=== PATIENT | female | born 1975 | race Caucasian/White ===

== ENCOUNTER 2017-08-26 14:04 | Inpatient (IN) | payer SELFPAY ==
[~2017-08-26] VITALS: Ht 162.6 cm; Wt 52.8 kg
[2017-08-26 14:04] VITALS: BP 119/78
[~2017-08-26 14:04] MED LIST: ALBUTEROL-200 PUFFS/ IH; ALEVE220 MG PO; APAP/BUTALBITAL1 TA1 PO; BENZONATATE100 MG PO; BREO ELLIPTA1 POW IH; BUPRENORPHINE H1 TA2 SL; CIPRO 500MG TA500 MG PO; CIPROFLOXACIN500 MG PO; DOXYCYCLINE HY100 M1 PO; DULERA1 AR1 IH; FLAGYL500 M1 PO; FLEXERIL10 MG PO; FLUOXETINE HYDR40 MG PO; IBU-8800 MG PO; LEVAQUIN500 MG PO; LORTAB 5/500 501 TAB PO; MEDROL 4MG. DOSE4 MG PO; MOBIC7.5 MG PO; MOTRIN600 M1 PO; NAPROSYN500 M1 PO; NICOTINE PATCH;21 MG TD; NOMEDS *; NORCO 325 MG-51 TAB PO; PERCOCET 10 MG1 EACH PO; PHENERGAN 25MG.25 M1 PO; PREDNISONE 20MG20 MG PO; PRILOSEC20 MG PO; ROBAXIN-750750 MG PO; SPIRIVA HA1 PUFF/INH IH; TESSALON PERLE100 M1 PO; TYLENOL 8 HOUR650 MG PO; TYLENOL ES500 M1 PO; VALIUM 10MG TAB10 MG PO; VICODIN 5/500 T1 TAB PO; VISTARIL25 M1 PO; XANAX 1MG TABLET1 MG PO
--- NOTE | 2017-08-26 14:44 | Emergency Room Report ---
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 Y Clinical Suspician of Infection? Y Mental Status: 1 - Regular (Normal Baseline) Sepsis Risk:Low Sepsis Risk Have you (or family members/close friends) recently traveled outside the [place]? N If Yes, where/when: Have you had exposure to infectious disease within the past month? N TB? Other? Specify: Comment The patient is brought in by ambulance with complaints of sore throat and fever. She has been sick since Friday 2 days ago. Bad sore throat yesterday, not as bad today. She has very slight cough. She has rhinorrhea. Nausea, but no vomiting or diarrhea. Generalized malaise and body aches. She does not think she has had a flu shot this year. Not eating or drinking much. States she feels dehydrated. ALLERGIES Coded Allergies: Penicillins (05/22/16) codeine (05/22/16) Home Medications Reported Medications Fluoxetine Hcl (Fluoxetine Hydrochloride) 40 MG PO DAILY Hydroxyzine Pamoate (Vistaril 25MG CAP) 25 MG PO QHSP PRN SLEEP BENZONATATE (Benzonatate) 100 MG PO TID PRN COUGH Tiotropium [place] (Spiriva) 2 PUFFS IH DAILY FLUTICASONE/VILANTEROL (Breo Ellipta 100-25 Mcg INH) 1 POW IH DAILY History Medical History General CAD? No Angina: No NM: No Hypertension? No Hyperlipidemia? No CHF? Yes DVT? No PE? No COPD? Yes Asthma? No Anemia? No GERD? No Gastric ulcers? No GI Bleed? No Hernia? No Thyroid Problems? No Hypothyroidism? No CVA? No Seizures? No Diabetes? No Insulin Dependent: No Insulin Pump: No Home FSBS? No Renal Insuffiency? No End Stage Renal Disease? No UTI? No Stones? No BPH? No GB Disease: Yes Nephritic Syndrome? No Asplenia? No Hepatitis? No Sickle Cell Disease? No Arthritis? No Migraines? No Cataracts? No Glaucoma? No MRSA? No HIV? No TB? No Anxiety? No Depression? No Cancer? No More? 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 Respiratory cough Cardiovascular denies chest pain Gastrointestinal denies diarrhea, nausea, denies vomiting Musculoskeletal muscle pain Physical Exam Vital Signs Vital Signs Date Time Temp Pulse Resp B/P Pulse O2 O2 Flow FiO2 Ox Delivery Rate 08/26 1949 16 08/26 193 100.9 100 18 103/63 97 08/26 1802 101.0 98 18 109/81 97 2 08/26 1657 102.5 101 18 107/64 97 2 08/26 1404 100.2 112 18 119/78 94 2 General Appearance normal appearance, WD/WN Eye Exam - bilateral eye normal exam, bilateral eye PERRL, bilateral eye EOMI Ear, Nose, Throat hearing grossly normal, erythema of pharynx without exudate or tonsillar hypertrophy, uvula midline. No signs of peritonsillar abscess. Neck normal inspection, non-tender, supple, full range of motion Respiratory Status Yes: trachea midline, chest symmetrical, non tender chest. No: respiratory distress. Lung Sounds bilateral: normal breath sounds, lungs clear. Cardiovascular normal exam, regular rate/rhythm, no peripheral edema, no gallop, no JVD, no murmur, no rub, normal peripheral pulses Peripheral Pulses Pulses normal Yes Gastrointestinal normal bowel sounds, normal exam, non tender, soft, no organomegaly Extremities normal inspection Neurologic alert, normal exam, oriented x 3 Mental status normal mood/affect Skin intact, normal color, warm/dry Lymphatic no adenopathy Medical Decision Making LABS/Meds/Orders Pt receiving controlled substance in ED? No Results/Orders Laboratory Tests 08/26/17 1900: Urine Color YELLOW, Urine Appearance CLEAR, Urine pH 6.0, Ur Specific [place] <= 1.005, Urine Protein NEGATIVE, Urine Ketones NEGATIVE, Urine Blood TRACE-LYSED, Urine Nitrate NEGATIVE, Urine Bilirubin NEGATIVE, Urine Urobilinogen 0.2, Ur Leukocyte Esterase NEGATIVE, Urine RBC NONE, Urine WBC 20-50, Ur Squamous Epith Cells 20-50, Urine Bacteria 3+, Urine Glucose NEGATIVE 08/26/17 1605: Influenza Type A Ag NOT DETECTED, Influenza Type B Ag NOT DETECTED 08/26/17 1439: Lactic Acid 0.9 08/26/17 1439: Sodium 135 L, Potassium 3.2 L, Chloride 98, Carbon Dioxide 31, BUN 7, Creatinine 0.8, Estimated Creat Clear 79, Estimated GFR (MDRD) 79, Glucose 96, Calcium 9.0, Total Bilirubin 0.5, AST 21, ALT 16, Alkaline Phosphatase 52, Total Protein 7.9, Albumin 3.8, Globulin 4.1 H, Albumin/Globulin Ratio 0.9 L, WBC 18.5 H, RBC 4.33, Hgb 13.8, Hct 41.5, MCV 95.9, RDW 12.7, Plt Count 288, MPV 8.5, Gran % 80.0, Gran # 14.8 H, Total Counted 100, Lymphocytes % 13.2, Monocytes % 4.3, Eosinophils % 1.7, Basophils % 0.8, Neutrophils 83 H, Band Neutrophils 2, Lymphocytes (Manual) 10, Lymphocytes # 2.5, Monocytes (Manual) 4, Monocytes # 0.8, Eosinophils # 0.3, Basophils # 0.2, Atypical Lymphocytes 1, Platelet Estimate NORMAL, Target Cells 1+, Stomatocytes 1+, PUBS MCHC 33.1, MCH 31.8 H Current Medication Orders Sig/Camille Start time Last Medication Dose Route Stop Time Status Admin Ceftriaxone Sodium 1 GM ONCE ONE 08/26 1945 r 08/26 Sodium Chloride 50 ML IV 08/26 Ketorolac 30 MG ONCE ONE 08/26 1945 DC 08/26 Tromethamine IV 08/26 Ceftriaxone Sodium 0 .STK-MED ONE 08/26 1939 DCr .ROUTE Sodium Chloride 100 ML .STK-MED ONE 08/26 1939 DC IV Ketorolac 0 .STK-MED ONE 08/26 1938 DC Tromethamine .ROUTE Acetaminophen 0 .STK-MED ONE 08/26 1653 DC PO Ondansetron HCl 0 .STK-MED ONE 10/31 1652 DC .ROUTE Sodium Chloride 1,000 ML .STK-MED ONE 08/26 1652 DC IV Acetaminophen 650 MG ONCE ONE 08/26 1500 DC 08/26 PO 08/26 1501 1656 Ondansetron HCl 4 MG ONCE ONE 08/26 1500 DC 08/26 IV 08/26 1501 1656 Sodium Chloride 1,000 ML .Q1H1M 08/26 1500 DC 08/26 IV 08/26 1600 1656 Sodium Chloride 10 ML PRN PRN 08/26 1430 AC IV 08/27 1420 Orders Procedure Date/time Status CULTURE, URINE 08/26 1900 Active URINALYSIS/COMPLETE 08/26 1711 Complete CULTURE, THROAT 08/26 1605 Active INFLUENZA A&B ANTIGENS 08/26 1444 Complete DIFFERENTIAL-WBC 08/26 1439 Complete IV SALINE LOCK 08/26 1421 Active CULTURE, BLOOD 08/26 1421 Active STREP SCREEN THROAT 08/26 1421 Complete LACTIC ACID 08/26 1421 Complete CBC WITH AUTO DIFF 08/26 1421 Complete CHEM 12 PROFILE 08/26 1421 Complete XRAY/CT/US XRAY/CT/US XRAY chest Comment X-ray interpreted by Fawad Yoon M.D.: Pleural scarring LEFT base, no acute change Progress - 7:00 PM: The patient states she feels slightly improved. We discussed her disposition. The patient still looks ill and has extreme malaise. Urine has 20- 50 white blood cells, but also a large number of epithelial cells. I will treat her for possible pyelonephritis. Discussed with Dr. Henriquez. The patient will be admitted. Departure Departure Disposition Still a Patient Clinical Impression Primary Impression: Febrile illness Condition STABLE Referrals Yuri Henriquez MD (Family) ED Critical Care Critical Care No at 2009
--- OUTSIDE RECORDS SUMMARY | 2017-08-26 14:47 | External Medical Summary Rpt | CCD ---
Demographics Preferred Language Divehi Marital Status Unknown Nondenominational Affiliation Unknown Race Unknown Ethnic Group Unknown Author Author , LENORE GROVER Address Unknown Phone Immunization No patient found.
--- OUTSIDE RECORDS SUMMARY | 2017-08-26 14:47 | External Medical Summary Rpt | CCD ---
Demographics Preferred Language Hebrew Marital Status Unknown Baptist Affiliation Unknown Race Unknown Ethnic Group Unknown Author Author , LENORE GROVER Address Unknown Phone Immunization No patient found.
--- OUTSIDE RECORDS SUMMARY | 2017-08-26 14:47 | External Medical Summary Rpt | CCD ---
Author Author , LENORE Organization LENORE Address Unknown Phone [email or web address] Care Team Providers Care Radio Recorder Name Role Phone Mechelle Varela MD, Unavailable Unavailable Mechelle Henriquez MD, Unavailable Unavailable Puneet Henriquez MD Purpose Continuity of Care Document - 01-31-2013 through 2016 Problems Code Diagnosis DOS Provider Status 465.9 465.9 ACUTE 09-23-2013 [place] URI NOS [facility] 491.21 491.21 09-23-2013 [facility] CHRONIC [facility] BRONCHITIS, W (ACUTE) EXACERBATIO N 305.1 305.1 06-28-2013 [place] TOBACCO USE [facility] DISORDER Hospital 486 486 06-28-2013 [place] PNEUMONIA, [facility] ORGANISM Hospital NOS V14.0 V14.0 06-28-2013 [place] HX-PENICILL [facility] IN ALLERGY Hospital 784.0 784.0 01-31-2013 [place] HEADACHE [facility] J44.9 CHRONIC OBSTRUCTIVE PULMONARY DISEASE, UNSPECIFIED N12 TUBULO-INTE RSTITIAL NEPHRITIS, 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 CHRONIC N39.0 URINARY TRACT INFECTION, SITE NOT SPECIFIED R10.9 UNSPECIFIED ABDOMINAL PAIN S60.00XA CONTUSION OF UNSP FINGER WITHOUT DAMAGE TO NAIL, INIT ENCNTR Allergies, Adverse Reactions, Alerts Type Drug Allergy Adverse Reaction to Substance Substance Reaction Severity No Known Allergies - Unknown Mild Nka NO KNOWN DRUG Unknown Unknown ALLERGIES PCN (penicillin) ITCHING, RASH Intermediate Codeine CLOSES THROAT, SOA Severe Medications Na ND Rx Da Fi Fi Am Da Di Ph RX Ph St me C No te ll ll ou ys ag ar # ys at rm s nt no ma ic us Or Da si cy ia de te s n re d IP 00 11 0 No RA 48 -2 T- 70 8- Lo AL 20 20 ng BU 10 13 er T 1 0. Ac 5- ti 3( ve 2. 5) MG /3 ML LA 00 11 0 No ED 05 -2 NI 40 8- Lo SO 01 20 ng NE 82 13 er 0 20 Ac ti MG ve TA BL ET AL 00 11 0 No BU 48 -2 TE 79 8- Lo RO 50 20 ng L 10 13 er DUGAN 1 L Ac 2. ti 5 ve MG /[address] AP 00 11 0 No AP 40 -2 /H 60 8- Lo YD 36 20 ng RO 56 13 er CO 2 DO Ac NE ti ve 32 5 MG -5 MG KE 00 11 0 No TO 40 -2 RO 93 8- Lo LA 79 20 ng C 50 13 er 30 1 Ac MG ti /M ve L AL VE 00 09 0 No NT 17 -0 OL 30 1- Lo IN 68 20 ng 22 13 er HF 4 A Ac 90 ti ve MC G IN AMES LE R Ae 08 09 0 No ro 37 -0 ch 30 1- Lo am 76 20 ng be 50 13 er r/ 0 Op Ac ti ti ames ve le r Ae 08 09 0 No ro 37 -0 ch 30 1- Lo am 76 20 ng be 50 13 er r/ 0 Op Ac ti ti ames ve le r Le 51 09 0 No vo 07 -0 fl 90 1- Lo ox 03 20 ng ac 52 13 er in 0 Ac 50 ti 0M ve G Ta bl et BE 57 09 0 No NZ 66 -0 ON 40 1- Lo AT 13 20 ng AT 38 13 er E 8 10 Ac 0 ti MG ve CA PS UL E KE 00 04 0 No TO 40 -0 RO 93 7- Lo LA 79 20 ng C 60 13 er 60 1 Ac MG ti /2 ve ML AL HY [address] 51 -0 OX 75 7- Lo YZ 60 20 ng IN 12 13 er E 5 50 Ac ti MG ve /M L AL Vital Signs 09-23-2013 17:31 Name Value Interpretat Reference Comment ion Range BP 76 mm[Hg] Diastolic BP Systolic 110 mm[Hg] Heart 129 /min Rate/Pulse O2% 92 % Respiratory 20 /min Rate 09-23-2013 17:22 Name Value Interpretat Reference Comment ion Range Body 100.6 Temperature [degF] 09-23-2013 15:56 Name Value Interpretat Reference Comment ion Range BP 85 mm[Hg] Diastolic BP Systolic 125 mm[Hg] Heart 121 /min Rate/Pulse O2% 86 % Respiratory 20 /min Rate 06-28-2013 00:09 Name Value Interpretat Reference Comment ion Range O2% 98 % 06-28-2013 00:05 Name Value Interpretat Reference Comment ion Range BP 85 mm[Hg] Diastolic BP Systolic 105 mm[Hg] Heart 100 /min Rate/Pulse Respiratory 16 /min Rate 06-27-2013 23:46 Name Value Interpretat Reference Comment ion Range BP 85 mm[Hg] Diastolic BP Systolic 105 mm[Hg] Heart 80 /min Rate/Pulse O2% 95 % Respiratory 20 /min Rate 01-31-2013 07:17 Name Value Interpretat Reference Comment ion Range BP 74 mm[Hg] Diastolic BP Systolic 112 mm[Hg] Heart 83 /min Rate/Pulse O2% 98 % Respiratory 20 /min Rate 01-31-2013 06:41 Name Value Interpretat Reference Comment ion Range BP 66 mm[Hg] Diastolic BP Systolic 117 mm[Hg] Heart 90 /min Rate/Pulse O2% 94 % Respiratory 12 /min Rate Encounters Encounter Start End Date Code Location Performer Type Date Emergency KUSH Varela MD (ER) 3 15:44 3 17:40 [facility] Emergency KUSH Henriquez MD (ER) 3 23:05 3 00:09 [facility] Emergency KUSH Henriquez MD (ER) 3 05:45 3 07:18 [facility]
--- OUTSIDE RECORDS SUMMARY | 2017-08-26 14:47 | External Medical Summary Rpt ---
Author Author LENORE Espino, [employer] Address Unknown Phone Unavailable
--- OUTSIDE RECORDS SUMMARY | 2017-08-26 14:47 | External Medical Summary Rpt | CCD ---
Author Author , LENORE Organization LENORE Address Unknown Phone [email or web address] Care Team Providers Care Professor Of Geology Name Role Phone Mechelle Varela MD, Unavailable Unavailable Mechelle Henriquez MD, Unavailable Unavailable Puneet Henriquez MD Purpose Continuity of Care Document - 01-31-2013 through 2016 Problems Code Diagnosis DOS Provider Status 465.9 465.9 ACUTE 09-23-2013 [place] URI NOS [facility] 491.21 491.21 09-23-2013 [facility]RON[facility] BRONCHITIS, W (ACUTE) EXACERBATIO N 305.1 305.1 06-28-2013 [place] TOBACCO USE [facility] DISORDER Hospital 486 486 06-28-2013 [place] PNEUMONIA, [facility] ORGANISM Hospital NOS V14.0 V14.0 06-28-2013 [place] HX-PENICILL [facility] IN ALLERGY Hospital 784.0 784.0 01-31-2013 [place] HEADACHE [facility] J44.9 CHRONIC OBSTRUCTIVE PULMONARY DISEASE, UNSPECIFIED N12 [...] 3( ve 2. 5) MG /3 ML NE 00 11 0 No ED 05 -2 [...] Varela MD (ER) 3 15:44 3 17:40 [facility] Emergency KUSH Henriquez MD (ER) 3 23:05 3 00:09 [facility] Emergency KUSH Henriquez MD (ER) 3 05:45 3 07:18 [facility]
[2017-08-26 14:50] LABS: HEMOGLOBIN 13.8 g/dL (12.2-16.2); LYMPH # 2.5 K/mm3 (0.7-4.5); LYMPH % 13.2 % (10-50.0)
[2017-08-26 15:19] LABS: NEUTROPHILS 83 % (42-76)
[2017-08-26 15:23] LABS: STOMATOCYTE 1+
--- NOTE | 2017-08-26 15:31 | RADIOLOGY REPORT PS360 ---
CHEST(2 VIEWS-NOT PORTABLE) HISTORY: Fever, smoker FEVER ORDERING PHYSICIAN: Fawad Yoon MD PATIENT AGE: 42 years COMPARISON: 03/04/2017 FINDINGS: Normal heart size. No evidence of CHF. COPD with scarring in the left lung base and chronic blunting of the left CP angle. Breast attenuation artifact present over both lower lobes right more so than left. No definite lobar consolidation or collapse. There is evidence of old granulomatous disease. No acute bony anomalies. IMPRESSION: COPD, no acute finding..
[2017-08-26 19:08] LABS: URINE BILIRUBIN - DIPSTICK NEGATIVE (NEG); URINE BLOOD TRACE-LYSED (NEG)
[2017-08-26 19:28] LABS: URINE SQUAMOUS CELLS 20-50 #/hpf (0-5)
--- OUTSIDE RECORDS SUMMARY | 2017-08-26 20:17 | External Medical Summary Rpt | CCD ---
Author Author , LENORE Organization LENORE Address Unknown Phone [email or web address] Care Team Providers Care Booking Officer Name Role Phone Mechelle Varela MD, Unavailable Unavailable Mechelle Henriquez MD, Unavailable Unavailable Puneet Henriquez MD Purpose Continuity of Care Document - 01-31-2013 through 2016 Problems Code Diagnosis DOS Provider Status 465.9 465.9 ACUTE 09-23-2013 [place] URI NOS [facility] 491.21 491.21 09-23-2013 [facility] CHRONIC [facility] BRONCHITIS, W (ACUTE) EXACERBATIO N 305.1 305.1 06-28-2013 [place] TOBACCO USE [facility] DISORDER Hospital 486 486 06-28-2013 [place] PNEUMONIA, [facility] ORGANISM Hospital NOS V14.0 V14.0 06-28-2013 [place] HX-PENICILL [facility] IN ALLERGY Hospital 784.0 784.0 01-31-2013 [place] HEADACHE [facility] J44.9 CHRONIC OBSTRUCTIVE PULMONARY DISEASE, UNSPECIFIED [...] 3( ve 2. 5) MG /3 ML [place] 00 11 0 No ED 05 -2 [...] O2% 94 % Respiratory 12 /min Rate Results Labs Lab Lab Date Result Refere Interp Status Commen Order Detail nces retati t Range on Urinalysis with microscopy (08-26-2017 19:00) Urine 20 - 50 O complet leukocy 017 ed festus 19:00 wbc/hpf count (number /volume ) Urine 0.2 0.2 NEG complet urobili 017 L ed nogen 19:00 E.U./dL detecti on by test str [place]ou 20-50 0-5 complet s 017 20-50 L ed epithel 19:00 #/hpf ial cells detecti on in u Urine < = 1.005-1 complet specifi 017 1.005 .030 ed c 19:00 gravity measure ment Erythro NONE 0 complet cytes 017 NONE L ed detecti 19:00 rbc/hpf on in urine sedimen t Urine = NEG complet protein 017 NEGATIV ed 19:00 E mg/dL measure ment by automat ed t Urine = 6.0 5.0-8.5 complet pH 017 ed 19:00 Urine NEGATIV NEG complet nitrite 017 E ed 19:00 NEGATIV detecti E L on by test strip Mucus NEGATIV NEG complet detecti 017 E ed on in 19:00 NEGATIV urine E L sedimen t by lig Urine NEGATIV NEG complet ketones 017 E ed 19:00 NEGATIV detecti E L on by mg/dL automat ed festus Glucose = NEG complet ur 017 NEGATIV ed test 19:00 E strip Urine YELLOW YELLOW complet color 017 YELLOW ed 19:00 L Urine TRACE-L NEG complet blood 017 YSED ed detecti 19:00 TRACE-L on YSED L Urine NEGATIV NEG complet total 017 E ed bilirub 19:00 NEGATIV in E L detecti on by test Bacteri 3+ 3+ L O complet a 017 ed detecti 19:00 on in urine sedimen t by Urine CLEAR CLEAR complet appeara 017 CLEAR L ed nce 19:00 determi nation Influenza A and B virus antigen assay (08-26-2017 16:05) Influen NOT NOT complet za 017 DETECTE DETECTD ed virus B 16:05 D NOT DETECTE antigen D L detecti on Comment: Nakia Rosas Influen NOT NOT complet za A ag 017 DETECTE DETECTD ed QL 16:05 D NOT DETECTE D L Comment: Nakia Rosas Screening group A Streptococcus antigen (08-26-2017 16:05) Screeni NEGATIV complet ng 017 E ed group A 16:05 NEGATIV E L Strepto coccus antigen Influenza virus A+B Ag [Presence] in Unspecified specimen (08-26-2017 16:05) Influen NOT NOT complet za 017 DETECTE DETECTD ed virus A 16:05 D Ag [Presen ce] in Unspeci fied specime n Influen NOT NOT complet za 017 DETECTE DETECTD ed virus B 16:05 D Ag [Presen ce] in Unspeci fied specime n Streptococcus pyogenes Ag [Presence] in Unspecified specimen (08-26-2017 16:05) Strepto NEGATIV complet coccus 017 E ed pyogene 16:05 s Ag [Presen ce] in Unspeci fied specime n Comprehensive metabolic panel (08-26-2017 14:39) Serum 2 = 3.8 3.4-5.0 complet or 017 gm/dL ed plasma 14:39 albumin measure ment (mas Protein = 7.9 6.4-8.2 complet total 017 gm/dL ed ser/marcin 14:39 s ALT = 16 12-78 complet (SGPT) 017 U/L ed ser/marcin 14:39 s Serum 2 = 21 15-37 complet or 017 U/L ed plasma 14:39 asparta te aminotr ansfera Serum = 135 136-145 complet sodium 017 mmoL/L ed measure 14:39 ment Serum = 3.2 3.5-5.1 complet potassi 017 mmoL/L ed um 14:39 measure ment Serum = 96 74-106 complet or 017 mg/dL ed plasma 14:39 glucose measure ment (mas Serum = 4.1 1.3-3.2 complet globuli 017 gm/dL ed n 14:39 measure ment (mass/v olume) Estimat = 79 59- complet ed 017 ML/MIN ed glomeru 14:39 lar filtrat ion rate (GF Comment: REFERENCE RANGE: >60 ML/MIN/1.73 SQUARE METERS Comment: If this patient is -Tajik, then multiply the Comment: result by 1.210. Estimat = 79 50-200 complet ion of 017 ML/MIN ed creatin 14:39 ine renal clearan ce Serum = 0.8 0.55-1. complet or 017 mg/dL 02 ed plasma 14:39 creatin ine measure ment ( Carbon = 31 21.0-32 complet dioxide 017 mmoL/L .0 ed 14:39 measure ment Serum = 98 98-107 complet or 017 mmoL/L ed plasma 14:39 chlorid e measure ment (mo Serum 2 = 9.0 8.5-10. complet or 017 mg/dL 1 ed plasma 14:39 calcium measure ment (mas Serum 2 = 7 7-18 complet or 017 mg/dL ed plasma 14:39 urea nitroge n measure men Serum = 0.5 0.2-1.0 complet or 017 mg/dL ed plasma 14:39 total bilirub in measure m Serum = 52 46-116 complet or 017 U/L ed plasma 14:39 alkalin e phospha tase lowell Serum = 0.9 1.1-1.8 complet or 017 ed plasma 14:39 albumin /globul in mass ra CBC w auto diff (08-26-2017 14:39) Blood = 18.5 4.8-10. complet leukocy 017 K/MM3 8 ed festus 14:39 count (number /volume ) Automat = 12.7 11.5-17 complet ed 017 % .5 ed erythro 14:39 cyte distrib ution width Red = 4.33 4.2-5.4 complet blood 017 M/mm3 ed cell 14:39 count Blood = 288 142-424 complet platele 017 K/mm3 ed t count 14:39 Automat = 8.5 7.4-10. complet ed 017 fl 4 ed blood 14:39 platele t mean volume lowell Morehouse % = 4.3 % 1.7-9.3 complet 017 ed 14:39 Absolut = 0.8 0.1-1.0 complet e 017 K/mm3 ed monocyt 14:39 e count Automat = 95.9 82.2-97 complet ed 017 fl .8 ed erythro 14:39 cyte mean corpusc ular v Automat = 33.1 31.8-35 complet ed 017 g/dl .4 ed erythro 14:39 cyte mean corpusc ular h Mean = 31.8 27-31.2 complet corpusc 017 pg ed ular 14:39 hemoglo bin (MCH) determ Lymphoc = 13.2 10-50.0 complet yte 017 % ed count, 14:39 blood, automat ed Absolut = 2.5 0.7-4.5 complet e 017 K/mm3 ed lymphoc 14:39 yte count Blood = 13.8 12.2-16 complet hemoglo 017 g/dL .2 ed bin 14:39 measure ment (mass/v olum Blood = 41.5 37.0-47 complet hematoc 017 % .0 ed rit 14:39 (volume fractio n) Granulo = 80.0 37.0-80 complet cyte 017 % .0 ed percent 14:39 age Blood = 14.8 1.8-7.8 complet granulo 017 K/mm3 ed cytes 14:39 automat ed count (numb Automat = 1.7 % 0.1-12. complet ed 017 0 ed blood 14:39 eosinop hils/10 0 leukocy t Automat = 0.3 0.0-0.4 complet ed 017 K/mm3 ed blood 14:39 eosinop hil count Baso % = 0.8 % 0.1-2.0 complet 017 ed 14:39 Automat = 0.2 0-0.2 complet ed 017 K/MM3 ed blood 14:39 basophi l count (count/ vo Blood lactic acid measurement (moles/vol (08-26-2017 14:39) Blood = 0.9 0.4-2.0 complet lactic 017 mmol/L ed acid 14:39 measure ment (moles/ vol Differential panel, method unspecified - (08-26-2017 14:39) Target 1+ 1+ L complet cell 017 ed detecti 14:39 on Blood = 100 complet total 017 #CELLS ed cell 14:39 count Blood 1+ 1+ L complet stomato 017 ed cytes 14:39 detecti on by light mi Neutrop = 83 % 42-76 complet hil 017 ed count 14:39 Platele NORMAL complet t 017 NORMAL ed estimat 14:39 L e Monocyt = 4 % 2-9 complet e % 017 ed 14:39 LYMPH 10 % 10-50 complet 017 ed 14:39 Automat = 2 % 0-8 complet ed 017 ed blood 14:39 band neutrop hil percent a Percent = 1 % 0-5 complet of 017 ed variant 14:39 lymphoc ytes in blood Differential panel, method unspecified - (08-26-2017 14:39) LYMPH 10 % 10% - Normal complet 017 50% ed 14:39 Platele NORMAL complet ts 017 ed [Presen 14:39 ce] in Blood by Light microsc opy Stomato 1+ complet cytes 017 ed [Presen 14:39 ce] in Blood by Light microsc opy Target 1+ complet cells 017 ed [Presen 14:39 ce] in Blood by Light microsc opy Encounters Encounter Start End Date Code Location Performer Type Date Emergency KUSH Varela MD (ER) 3 15:44 3 17:40 [facility] Emergency KUSH Henriquez MD (ER) 3 23:05 3 00:09 [facility] Emergency KUSH Henriquez MD (ER) 3 05:45 3 07:18 [facility]
--- OUTSIDE RECORDS SUMMARY | 2017-08-26 20:17 | External Medical Summary Rpt | CCD ---
Author Author , LENORE Organization LENORE Address Unknown Phone [email or web address] Team Providers Care Orthotic Finish Grinding Technician Name Role Phone Mechelle Varela MD, Unavailable Unavailable Mechelle Henriquez MD, Unavailable Unavailable Puneet Henriquez MD Purpose Continuity of Care Document - 01-31-2013 through 2016 Problems Code Diagnosis DOS Provider Status 465.9 465.9 ACUTE 09-23-2013 [place] URI NOS [facility] [place] 491.21 491.21 09-23-2013 [facility] CHRONIC [facility] BRONCHITIS, W (ACUTE) EXACERBATIO N 305.1 305.1 06-28-2013 [place] TOBACCO USE [facility] DISORDER Hospital [id number] 06-28-2013 [place] PNEUMONIA, [facility] ORGANISM Hospital NOS V14.0 V14.0 06-28-2013 [place] HX-PENICILL [facility] IN ALLERGY Hospital 784.0 784.0 01-31-2013 [place] HEADACHE [facility] [place] J44.9 CHRONIC OBSTRUCTIVE PULMONARY DISEASE, UNSPECIFIED N12 [...] 3( ve 2. 5) MG /3 ML NH 00 11 0 No ED 05 -2 [...] SQUARE METERS Comment: If this patient is -Italian, then multiply the Comment: result by 1.210. [...] blood 14:39 platele t mean volume lowell Polk % = 4.3 % 1.7-9.3 complet 017 [...] Varela MD (ER) 3 15:44 3 17:40 [facility] Emergency KUSH Henriquez MD (ER) 3 23:05 3 00:09 [facility] Emergency KUSH Henriquez MD (ER) 3 05:45 3 07:18 [facility]
--- OUTSIDE RECORDS SUMMARY | 2017-08-26 20:18 | External Medical Summary Rpt | CCD ---
Demographics Preferred Language Greek Marital Status Unknown Jainism Affiliation Unknown Race Unknown Ethnic Group Unknown Author Author , LENORE GROVER Address Unknown Phone Immunization No patient found.
--- OUTSIDE RECORDS SUMMARY | 2017-08-26 20:18 | External Medical Summary Rpt ---
Author Author CARLOSMI Espino, LENORE [employer] Organization [employer] Address Unknown Phone Unavailable Results Influenza virus A+B Ag [Presence] in Unspecified specimen Observa Value Referen Units Interpr Notes Date tion ce etation Range Influen NOT NOT No No Mend Aug 26 za DETECTE DETECTD informa informa yke,Nany 2017 virus A D tion in tion in herine 4:05 PM Ag source source [Presen data data ce] in Unspeci fied specime n Influen NOT NOT No No MeAug 26 za DETECTE DETECTD informa informa yambar,Nany 2017 virus B D tion in tion in herine 4:05 PM Ag source source [Presen data data ce] in Unspeci fied specime n Streptococcus pyogenes Ag [Presence] in Unspecified specimen Observa Value Referen Units Interpr Notes Date tion ce etation Range Strepto NEGATIV No No No No Aug 26 coccus E informa informa informa informa 2017 pyogene tion in tion in tion in tion in 4:05 PM s Ag source source source source [Presen data data data data ce] in Unspeci fied specime n Comprehensive metabolic 2000 panel in Serum or Plasma Observa Value Referen Units Interpr Notes Date tion ce etation Range Albumin/G 1.1 - 1.8 No Low No Aug 26 lobulin informati informati 2017 2:39 [Mass on in on in PM ratio] in source source Serum or data data Plasma Albumin 3.4 - 5.0 gm/dL Normal No Aug 26 [Mass/vol informati 2016 2:39 ume] in on in PM Serum or source Plasma data Alkaline 46 - 116 U/L Normal No Aug 26 phosphata informati 2017 2:39 se on in PM [Enzymati source c data activity/ volume] in Serum or Plasma Bilirubin 0.2 - 1.0 mg/dL Normal No Aug 26 .total informati 2017 2:39 [Mass/vol on in PM ume] in source Serum or data Plasma Urea 7 - 18 mg/dL Normal No Aug 26 nitrogen informati 2017 2:39 [Mass/vol on in PM ume] in source Serum or data Plasma Calcium 8.5 - mg/dL Normal No Aug 26 [Mass/vol 10.1 informati 2017 2:39 ume] in on in PM Serum or source Plasma data Chloride 98 - 107 mmoL/L Normal No Aug 26 [Moles/vo informati 2017 2:39 lume] in on in PM Serum or source Plasma data Carbon 21.0 - mmoL/L Normal No Aug 26 dioxide, 32.0 informati 2017 2:39 total on in PM [Moles/vo source lume] in data Serum or Plasma Creatinin 0.55 - mg/dL Normal No Aug 26 e 1.02 informati 2017 2:39 [Mass/vol on in PM ume] in source Serum or data Plasma Creatinin 50 - 200 ML/MIN Normal No Aug 26 e renal informati 2016 2:39 clearance on in PM source predicted data by Cockcroft -Gault formula Estimated 59- ML/MIN No REFERENCE Aug 26 informati RANGE: 2017 2:39 glomerula on in >60 PM r source ML/MIN/1. filtratio data 73 SQUARE n rate METERSIf (GF this patient is -A merican, then multiply theresult by 1.210. Globulin 1.3 - 3.2 gm/dL High No Aug 26 [Mass/vol informati 2017 2:39 ume] in on in PM Serum source data Glucose 74 - 106 mg/dL Normal No Aug 26 [Mass/vol informati 2016 2:39 ume] in on in PM Serum or source Plasma data Potassium 3.5 - 5.1 mmoL/L Low No Aug 26 informati 2017 2:39 [Moles/vo on in PM lume] in source Serum or data Plasma Sodium 136 - 145 mmoL/L Low No Aug 26 [Moles/vo informati 2017 2:39 lume] in on in PM Serum or source Plasma data Aspartate 15 - 37 U/L Normal No Aug 26 informati 2017 2:39 aminotran on in PM sferase source [Enzymati data c activity/ volume] in Serum or Plasma Alanine 12 - 78 U/L Normal No Aug 26 aminotran informati 2017 2:39 sferase on in PM [Enzymati source c data activity/ volume] in Serum or Plasma Protein 6.4 - 8.2 gm/dL Normal No Aug 26 [Mass/vol informati 2016 2:39 ume] in on in PM Serum or source Plasma data CBC W Auto Differential panel in Blood Observa Value Referen Units Interpr Notes Date tion ce etation Range Basophils 0 - 0.2 K/MM3 Normal No Aug 26 informati 2016 2:39 [#/volume on in PM ] in source Blood by data Automated count Basophils 0.1 - 2.0 % Normal No Aug 26 / informati 2017 2:39 leukocyte on in PM s in source Blood by data Automated count Eosinophi 0.0 - 0.4 K/mm3 Normal No Aug 26 ls informati 2016 2:39 [#/volume on in PM ] in source Blood by data Automated count Eosinophi 0.1 - % Normal No Aug 26 ls/100 12.0 informati 2016 2:39 leukocyte on in PM s in source Blood by data Automated count Granulocy 1.8 - 7.8 K/mm3 High No Aug 26 festus informati 2016 2:39 [#/volume on in PM ] in source Blood by data Automated count Granulocy 37.0 - % Normal No Aug 26 festus/100 80.0 informati 2016 2:39 leukocyte on in PM s in source Blood by data Automated count Hematocri 37.0 - % Normal No Aug 26 t [Volume 47.0 informati 2016 2:39 on in PM Fraction] source of Blood data Hemoglobi 12.2 - g/dL Normal No Aug 26 n 16.2 informati 2016 2:39 [Mass/vol on in PM ume] in source Blood data Lymphocyt 0.7 - 4.5 K/mm3 Normal No Aug 26 es informati 2016 2:39 [#/volume on in PM ] in source Unspecifi data ed specimen by Automated count Lymphocyt 10 - 50.0 % Normal No Aug 26 es informati 2016 2:39 [#/volume on in PM ] in source Unspecifi data ed specimen by Automated count Erythrocy 27 - 31.2 pg High No Aug 26 te mean informati 2016 2:39 corpuscul on in PM ar source hemoglobi data n [Entitic mass] Erythrocy 31.8 - g/dl Normal No Aug 26 te mean 35.4 informati 2017 2:39 corpuscul on in PM ar source hemoglobi data n concentra tion [Mass/vol ume] by Automated count Erythrocy 82.2 - fl Normal No Aug 26 te mean 97.8 informati 2016 2:39 corpuscul on in PM ar volume source [Entitic data volume] by Automated count Monocytes 0.1 - 1.0 K/mm3 Normal No Aug 26 informati 2016 2:39 [#/volume on in PM ] in source Blood by data Automated count Monocytes 1.7 - 9.3 % Normal No Aug 26 informati 2016 2:39 leukocyte on in PM s in source Blood by data Automated count Platelet 7.4 - fl Normal No Aug 26 mean 10.4 informati 2016 2:39 volume on in PM [Entitic source volume] data in Blood by Automated count Platelets 142 - 424 K/mm3 Normal No Aug 26 inform2016 2:39 [#/volume on in PM ] in source Blood data Erythrocy 4.2 - 5.4 M/mm3 Normal No Aug 26 festus informati 2016 2:39 [#/volume on in PM ] in source Amniotic data fluid Erythrocy 11.5 - % Normal No Aug 26 te 17.5 informati 2016 2:39 distribut on in PM ion width source [Entitic data volume] by Automated count Leukocyte 4.8 - K/MM3 High No Aug 26 s 10.8 informati 2016 2:39 [#/volume on in PM ] in source Blood data Differential panel, method unspecified - Observa Value Referen Units Interpr Notes Date tion ce etation Range Lymphocyt 0 - 5 % Normal No Aug 26 es informati 2016 2:39 Variant/1 on in PM 00 source leukocyte data s in Blood by Manual count Neutrophi 0 - 8 % Normal No Aug 26 ls.band informati 2017 2:39 form/100 on in PM leukocyte source s in data Blood by Automated count LYMPH 10 10 - 50 % Normal No Aug 26 inform2016 tion in 2:39 PM source data Monocytes 2 - 9 % Normal No Aug 26 informati 2016 2:39 leukocyte on in PM s in source Blood by data Automated count Platele NORMAL No No No No Aug 26 ts informa informa informa informa 2016 [Presen tion in tion in tion in tion in 2:39 PM ce] in source source source source Blood data data data data by Light microsc opy Neutrophi 42 - 76 % High No Aug 26 ls informati 2017 2:39 [#/volume on in PM ] in source Blood by data Automated count Stomato 1+ No No No No Aug 26 cytes informa informa informa informa 2016 [Presen tion in tion in tion in tion in 2:39 PM ce] in source source source source Blood data data data data by Light microsc opy Cells No #CELLS No No Aug 26 Counted informati informati informati 2017 2:39 Total [#] on in on in on in PM in Blood source source source data data data Target 1+ No No No No Aug 26 cells informa informa informa informa 2016 [Presen tion in tion in tion in tion in 2:39 PM ce] in source source source source Blood data data data data by Light microsc opy Lactate [Moles/volume] in Blood Observa Value Referen Units Interpr Notes Date tion ce etation Range Lactate 0.4 - 2.0 mmol/L Normal No Aug 26 [Moles/vo informati 2017 2:39 lume] in on in PM Blood source data
--- OUTSIDE RECORDS SUMMARY | 2017-08-26 20:18 | External Medical Summary Rpt | CCD ---
Demographics Preferred Language Mohawk Marital Status Unknown Holiness Affiliation Unknown Race Unknown Ethnic Group Unknown Author Author , LENORE GROVER Address Unknown Phone Immunization No patient found.
[2017-08-26 21:25] VITALS: BP 85/48
[2017-08-26 21:35] VITALS: BP 92/54
[2017-08-26 23:03] VITALS: BP 92/54
[2017-08-27] VITALS (8 sets, daily range): BP systolic 86–109; BP diastolic 40–62
--- NOTE | 2017-08-27 07:23 | PHARMACY CLINIC NOTE ---
Patient Demographics Patient Demographics Admission date: 08/26/17 Date: 08/27/17 Time: 07 Allergies Coded Allergies: Penicillins (05/22/16) codeine (05/22/16) HEIGHT- FT: 5 IN: 4.00 K.844 VTE General Information Labs: Laboratory Tests 08/26 1439 Hematology Hgb (12.2 - 16.2 g/dL) 13.8 Hct (37.0 - 47.0 %) 41.5 Plt Count (142 - 424 K/mm3) 288 Disclaimer The following section includes nursing documentation that has been pulled in for pharmacy review. Patient's VTE score: 1 Patient's VTE Risk: VERY LOW RISK Clinical trial participant? No VTE prophylaxis NQF [id number] VTE prophylaxis ordered? Yes Type of prophylaxis/treatment: YUE at 0723
[2017-08-27 07:25] LABS: LYMPH # 1.3 K/mm3 (0.7-4.5)
[2017-08-27 07:58] LABS: HEMOGLOBIN 12.2 g/dL (12.2-16.2)
--- NOTE | 2017-08-27 09:09 | HISTORY AND PHYSICAL REPORT ---
Demographics: Admit date: 08/26/17 Chief complaint: fever PRIMARY DIAGNOSIS: FEBRILE ILLNESS Allergies: Coded Allergies: Penicillins (05/22/16) codeine (05/22/16) History of present illness: History of present illness: this wf with progressive illness with weakness and fever -he patient is brought in by ambulance with complaints of sore throat and fever. She has been sick since Friday 2 days ago. Bad sore throat yesterday, not as bad today. She has very slight cough. She has rhinorrhea. Nausea, but no vomiting or diarrhea. Generalized malaise and body aches. She does not think she has had a flu shot this year. Not eating or drinking much. States she feels dehydrated- above as per ed Past medical history: Family HX Family Hx Insignificant Yes Immunization HX DT/Tetanus Unknown Flu 2016-18FSN Pneumonia Received In Past TB Test in last year No General CAD? No Angina: No MO: No Hypertension? No Hyperlipidemia? No CHF? Yes DVT? No PE? No COPD? Yes Asthma? No Anemia? No GERD? No Gastric ulcers? No GI Bleed? No Hernia? No Thyroid Problems? No Hypothyroidism? No CVA? No Seizures? No Diabetes? No Insulin Dependent: No Insulin Pump: No Home FSBS? No Renal Insuffiency? No UTI? No Stones? No BPH? No GB Disease: Yes Nephritic Syndrome? No Asplenia? No Hepatitis? No Sickle Cell Disease? No Arthritis? No Migraines? No Cataracts? No Glaucoma? No MRSA? No HIV? No TB? No Anxiety? No Depression? No Cancer? No More? 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 No Patien't marital status is Patient's support system is good Review of systems: Constitutional see HPI, fever, weakness. Eyes No: drainage. Ears, Nose, Mouth, Throat No ear pain, No epistaxis, No throat pain Respiratory No: cough, shortness of breath, wheezing. Cardiovascular No chest pain, No palpitations, No syncope Gastrointestinal/Abdominal see HPI, No diarrhea, poor appetite, poor fluid intake, No vomiting Genitourinary No: dysuria, frequency, hesitancy, hematuria. Musculoskeletal No: back pain, joint pain, joint swelling, neck pain. Skin No: rash. Neurological No: tingling, seizure disorder. Psychiatric No: depressed. Exam: Lab data for last 24 hours: Laboratory Tests 08/27/17 0617: Sodium 139, Potassium 3.4 L, Chloride 106, Carbon Dioxide 28, BUN 8, Creatinine 0.7, Estimated Creat Clear 87, Estimated GFR (MDRD) 92, Glucose 78, Calcium 8.0 L, WBC 16.1 H, RBC 3.87 L, Hgb 12.2, Hct 38.0, MCV 98.1 H, RDW 12.9, Plt Count 233, MPV 8.5, Gran % 84.9 H, Gran # 13.6 H, Lymphocytes % 8.0 L, Monocytes % 6.4, Eosinophils % 0.5, Basophils % 0.3, Lymphocytes # 1.3, Monocytes # 1.0, Eosinophils # 0.1, Basophils # 0.1, PUBS MCHC 32.2, MCH 31.6 H 08/26/17 1900: Urine Color YELLOW, Urine Appearance CLEAR, Urine pH 6.0, Ur Specific [place] <= 1.005, Urine Protein NEGATIVE, Urine Ketones NEGATIVE, Urine Blood TRACE-LYSED, Urine Nitrate NEGATIVE, Urine Bilirubin NEGATIVE, Urine Urobilinogen 0.2, Ur Leukocyte Esterase NEGATIVE, Urine RBC NONE, Urine WBC 20-50, Ur Squamous Epith Cells 20-50, Urine Bacteria 3+, Urine Glucose NEGATIVE 08/26/17 1605: Influenza Type A Ag NOT DETECTED, Influenza Type B Ag NOT DETECTED 08/26/17 1439: Lactic Acid 0.9 08/26/17 1439: Sodium 135 L, Potassium 3.2 L, Chloride 98, Carbon Dioxide 31, BUN 7, Creatinine 0.8, Estimated Creat Clear 79, Estimated GFR (MDRD) 79, Glucose 96, Calcium 9.0, Total Bilirubin 0.5, AST 21, ALT 16, Alkaline Phosphatase 52, Total Protein 7.9, Albumin 3.8, Globulin 4.1 H, Albumin/Globulin Ratio 0.9 L, WBC 18.5 H, RBC 4.33, Hgb 13.8, Hct 41.5, MCV 95.9, RDW 12.7, Plt Count 288, MPV 8.5, Gran % 80.0, Gran # 14.8 H, Total Counted 100, Lymphocytes % 13.2, Monocytes % 4.3, Eosinophils % 1.7, Basophils % 0.8, Neutrophils 83 H, Band Neutrophils 2, Lymphocytes (Manual) 10, Lymphocytes # 2.5, Monocytes (Manual) 4, Monocytes # 0.8, Eosinophils # 0.3, Basophils # 0.2, Atypical Lymphocytes 1, Platelet Estimate NORMAL, Target Cells 1+, Stomatocytes 1+, PUBS MCHC 33.1, MCH 31.8 H Microbiology 08/26 1900 URINE CC: Urine Culture - RES 08/26 1605 THROAT: Throat Culture - RECD 08/26 143 BLOOD: Anaerobic Blood Culture - RECD 08/26 143 BLOOD: Aerobic Blood Culture - RECD 08/26 1439 BLOOD: Anaerobic Blood Culture - RECD 08/26 143 BLOOD: Aerobic Blood Culture - RECD Admission vital signs: 1ST Vital Signs Result Date Time Pulse Ox 94 08/26 1404 B/P 119/78 08/26 1404 O2 Flow Rate 2 08/26 1404 Temp 100.2 08/26 1404 Pulse 112 08/26 1404 Resp 18 08/26 1404 O2 Delivery ROOM AIR 08/26 2125 Exam General appearance: awake Eyes: PERRLA ENT: dry mucous membranes Neck: no JVD Cardiovascular: regular rate & rhythm Respiratory: clear to auscultation, no respiratory distress ABD: no rebound, soft, no tenderness, no guarding, no organomegaly Genitourinary: no hematuria Extremities: moves all Musculoskeletal: equal muscle strength Skin: dry 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 Febrile illness 2. UTI (urinary tract infection) 3. H/O splenectomy Plan: will cover with abx and await urine c/s at 0908
[2017-08-28 04:30] VITALS: BP 107/67
--- NOTE | 2017-08-28 07:22 | ACUTE CARE PROGRESS NOTE (QUA) ---
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 Febrile illness 2. UTI (urinary tract infection) 3. H/O splenectomy 4. E. coli UTI Patient condition Improving Plan: initiate discharge plan This inpt stay is expected to cross 2 MNs from start of care Yes Comments: will d/c this am at 0762
--- NOTE | 2017-08-28 07:22 | ACUTE CARE PROGRESS NOTE (QUA) ---
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 Febrile illness 2. UTI (urinary tract infection) 3. H/O splenectomy 4. E. coli UTI Patient condition Improving Plan: initiate discharge plan This inpt stay is expected to cross 2 MNs from start of care Yes Comments: will d/c this am at 0724
[2017-08-28] MEDS ORDERED: KEFLEX 500MG.500 MG PO (07:24)
--- NOTE | 2017-08-28 07:27 | DISCHARGE SUMMARY STANDARD ---
Demographics Admit date: 08/26/17 Discharge date: 08/28/17 History of present illness History of present illness this wf with progressive illness with weakness and fever -he patient is brought in by ambulance with complaints of sore throat and fever. She has been sick since Friday 2 days ago. Bad sore throat yesterday, not as bad today. She has very slight cough. She has rhinorrhea. Nausea, but no vomiting or diarrhea. Generalized malaise and body aches. She does not think she has had a flu shot this year. Not eating or drinking much. States she feels dehydrated- above as per ed Hospital Course Hospital Course: pt with continued febrile and ill appearing with dec po intake and activity but was stable on ivf and abx and then no fever last 24 hrs and e coli noted with sens to cephasporins and pt better - will d/c and ok to work on friday and see in office in 2 weeks Discharge diagnoses Problem List 1. Febrile illness 2. UTI (urinary tract infection) 3. H/O splenectomy 4. E. coli UTI Medications Medications: Discharge meds are as noted. Comment: will d/c today on keflex and return to work friday09/01/17 Follow up Follow up in office in: 2 WEEKS with: Yuri Henriquez MD at 9255
[2017-08-28 07:37] LABS: HEMOGLOBIN 11.2 g/dL (12.2-16.2); LYMPH # 1.7 K/mm3 (0.7-4.5); LYMPH % 14.7 % (10-50.0)
[2017-08-28 08:17] VITALS: BP 105/56
[2017-08-28 10:04] VITALS: BP 105/56
[2017-08-28 10:07] VITALS: BP 105/56
== END 2017-08-28 10:15 | disposition home or self-care (01) | DRG 690 ==
LOC: ER 14:04 → 2ND 20:13 → ER 20:13 → 2ND 20:13
PROVIDERS: Emergency Medicine
DX: N39.0 Urinary tract infection, site not specified (principal); B96.20 Unspecified Escherichia coli [E. coli] as the cause of diseases classified elsewhere
CPT/HCPCS: J2405